=== PATIENT | male | born 1975 | race Caucasian/White ===

== ENCOUNTER 2018-05-08 13:22 | Inpatient (IN) | payer OTHER ==
[2018-05-08] MEDS: ONDANSETRON ODT 4 MG TAB.RAPDIS. PO (14:30)
[2018-05-08] MEDS ORDERED: ONDANSETRON PF 4 MG/2 ML VIAL. (14:36)
[2018-05-08 14:41] LABS: ADD MAN DIFF? NO
[2018-05-08] MEDS: ONDANSETRON PF 4 MG/2 ML VIAL. IV (14:45)
[2018-05-08 14:51] LABS: BASO % 0 % (0-3); EOS # 0.1 x10^3/uL (0.0-0.7); EOS % 1 % (0-3); HEMATOCRIT 44.2 % (39.0-53.0); HEMOGLOBIN 15.2 g/dL (13.0-17.5); LYMPH % 10 % (24-48); MEAN CORPUSCULAR HEMOGLOBIN 30 pg (25-35); MEAN CORPUSCULAR HGB CONC 35 g/dL (31-37); MEAN CORPUSCULAR VOLUME 86 fL (79-100); MONO # 0.7 x10^3/uL (0.0-1.1); MONO % 7 % (0-9); NEUT # 8.1 x10^3uL (1.8-7.7); NEUT % 82 % (31-73); PLATELET COUNT 191 x10^3/uL (140-400); RED BLOOD COUNT 5.16 x10^6/uL (4.30-5.70); WHITE BLOOD COUNT 9.9 x10^3/uL (4.0-11.0)
[2018-05-08 14:57] LABS: ANION GAP 6 (6-14); BLOOD UREA NITROGEN 20 mg/dL (8-26); BUN/CREATININE RATIO 22 (6-20); CALCIUM 8.5 mg/dL (8.5-10.1); CARBON DIOXIDE 28 mmol/L (21-32); CHLORIDE 103 mmol/L (98-107); CREATININE 0.9 mg/dL (0.7-1.3); GFR 92.5; GLUCOSE 102 mg/dL (70-99); POTASSIUM 3.9 mmol/L (3.5-5.1); SODIUM 137 mmol/L (136-145)
[2018-05-08] MEDS: DICYCLOMINE HCL 10 MG CAPSULE PO (15:01)
[2018-05-08] MEDS: FAMOTIDINE 20 MG TABLET. PO (15:01)
[2018-05-08 15:03] LABS: ALBUMIN 3.7 g/dL (3.4-5.0); ALK PHOS 53 U/L (46-116); ALT (SGPT) 30 U/L (16-63); AST (SGOT) 21 U/L (15-37); LIPASE 138 U/L (73-393); TOTAL BILIRUBIN 0.6 mg/dL (0.2-1.0); TOTAL PROTEIN 7.5 g/dL (6.4-8.2)
[2018-05-08 15:33] LABS: BILIRUBIN,URINE SMALL (NEG); CLARITY,URINE CLOUDY; COLOR,URINE AMBER; GLUCOSE,URINE NEGATIVE (NEG); NITRITE,URINE NEGATIVE (NEG); PH,URINE 5.5; PROTEIN,URINE 30 mg/dL (NEG-TRACE)
[2018-05-08] MEDS: IOHEXOL 300 MG/ML 100ML VIAL. IV (15:55)
[2018-05-08 15:56] LABS: BACTERIA,URINE 0 /HPF (0-FEW)
[2018-05-08] MEDS ORDERED: ACETAMINOPHEN 325 MG TABLET. PO ×2 (16:45→17:30)
[2018-05-08] MEDS ORDERED: ONDANSETRON PF 4 MG/2 ML VIAL. IV ×2 (16:45→17:30)
[2018-05-08] MEDS ORDERED: fentaNYL PF VIAL 100 MCG/2 ML VIAL IV (16:45)
[2018-05-08] MEDS ORDERED: DOCUSATE SODIUM 100 MG CAPSULE. PO (17:30)
[2018-05-08] MEDS ORDERED: traMADol 50 MG TABLET PO (17:30)
[2018-05-08] MEDS ORDERED: hydrALAZINE 20 MG/ML VIAL. IVP (17:30)
[2018-05-08] MEDS ORDERED: MORPHINE SULFATE 2 MG/ML DISP.SYRIN. IV (17:30)
[2018-05-08] MEDS: IV NORMAL SALINE 1000ML BAG 1,000 ML IV (18:00)
[2018-05-08] MEDS: FAMOTIDINE 20 MG/2 ML VIAL IVP (21:29)
[2018-05-08] MEDS: ENOXAPARIN 40 MG/0.4 ML SYRINGE. SQ (21:30)
[2018-05-09] MEDS: IV NORMAL SALINE 1000ML BAG 1,000 ML IV (04:00)
[2018-05-09 08:29] LABS: ADD MAN DIFF? NO
[2018-05-09 08:34] LABS: BASO % 0 % (0-3); EOS # 0.1 x10^3/uL (0.0-0.7); EOS % 2 % (0-3); HEMATOCRIT 40.9 % (39.0-53.0); HEMOGLOBIN 14.1 g/dL (13.0-17.5); LYMPH # 1.6 x10^3/uL (1.0-4.8); LYMPH % 26 % (24-48); MEAN CORPUSCULAR HEMOGLOBIN 30 pg (25-35); MEAN CORPUSCULAR HGB CONC 35 g/dL (31-37); MEAN CORPUSCULAR VOLUME 86 fL (79-100); MONO # 0.6 x10^3/uL (0.0-1.1); MONO % 10 % (0-9); NEUT # 3.8 x10^3uL (1.8-7.7); NEUT % 61 % (31-73); PLATELET COUNT 165 x10^3/uL (140-400); RED BLOOD COUNT 4.76 x10^6/uL (4.30-5.70); RED CELL DISTRIBUTION WIDTH 14.1 % (11.5-14.5); WHITE BLOOD COUNT 6.2 x10^3/uL (4.0-11.0)
[2018-05-09 09:18] LABS: ALBUMIN 3.1 g/dL (3.4-5.0); ALBUMIN/GLOBULIN RATIO 0.9 (1.0-1.7); ALK PHOS 50 U/L (46-116); ALT (SGPT) 32 U/L (16-63); ANION GAP 6 (6-14); AST (SGOT) 18 U/L (15-37); BLOOD UREA NITROGEN 16 mg/dL (8-26); BUN/CREATININE RATIO 18 (6-20); CALCIUM 8.1 mg/dL (8.5-10.1); CARBON DIOXIDE 26 mmol/L (21-32); CHLORIDE 106 mmol/L (98-107); CREATININE 0.9 mg/dL (0.7-1.3); GFR 92.5; GLUCOSE 79 mg/dL (70-99); POTASSIUM 4.1 mmol/L (3.5-5.1); SODIUM 138 mmol/L (136-145); TOTAL BILIRUBIN 0.5 mg/dL (0.2-1.0); TOTAL PROTEIN 6.4 g/dL (6.4-8.2)
== END 2018-05-09 14:55 | disposition home or self-care (01) | DRG 390 ==
LOC: 4 NORTH 17:08 → ER 13:22 → 4 NORTH 16:26
DX: K56.609 Unspecified intestinal obstruction, unspecified as to partial versus complete obstruction (principal); G43.909 Migraine, unspecified, not intractable, without status migrainosus; Z83.71 Family history of colonic polyps; Z88.1 Allergy status to other antibiotic agents; Z80.0 Family history of malignant neoplasm of digestive organs
CPT/HCPCS: 36415; 74018; 74177; 80053; 81001; 83690; 85025; 96374; 99285; 99285-25; J1650; J2405; J7030; Q9967; S0028